=== PATIENT | male | born 1990 | race Hispanic/Latino ===

== ENCOUNTER 2022-09-27 23:16 | Emergency (ER) | payer SELFPAY ==
--- NOTE | ~2022-09-27 | XR_ITS ---
Clinical Indication: Shortness of breath PA and lateral views of the chest: Comparison: 01/24/2018 Findings: The lungs are clear, without evidence of focal consolidation or pleural effusion. Cardiome diastinal silhouette is within normal limits. Bones and soft tissues are unremarkable. Impression: Normal chest. Reviewed, dictated and finalized at location . Impression: Normal chest.
[2022-09-27 23:20] VITALS: BP 131/51; PULSE 90; RESP 18; TEMP 36.8; O2SAT 95
[2022-09-27 23:50] VITALS: BP 99/78; PULSE 90; RESP 17; TEMP 37.6; O2SAT 97
[2022-09-27 23:51] VITALS: O2SAT 97
[2022-09-27 23:53] VITALS: O2SAT 97
[2022-09-27 23:56] VITALS: PULSE 97
--- NOTE | 2022-09-28 00:11 | PC.NURSE ---
[facility] called respiratory for breathing treatment.
--- NOTE | 2022-09-28 00:26 | PC.NURSE ---
Respiratory at bedside for breathing treatment.
[2022-09-28 00:31] VITALS: PULSE 77; RESP 19
[2022-09-28] MEDS: ALBUTEROL SULFATE NEB 2.5 MG/3 ML INH 10 MG INHALATION (00:35)
[2022-09-28] MEDS: IPRATROPIUM BR 0.02% INH SOLN 0.5 MG/2.5 ML VIAL 1 MG INHALATION (00:35)
[2022-09-28 00:44] LABS: Basophils Percent Auto 0.3 % (0.2-1.2); Eosinophils Absolute Auto 0.2 K/mm3 (0-0.3); Eosinophils Percent Auto 2.5 % (0-4.4); Hematocrit 45.2 % (42.0-52.0); Hemoglobin 14.8 g/dL (14.0-18.0); Immature Granulocyte Absolute 0.01 K/mm3 (0.00-0.031); Immature Granulocyte Percent A 0.1 % (0-0.5); Lymphocytes Absolute Auto 2.24 K/mm3 (0.9-3.2); Lymphocytes Percent Auto 31.1 % (18.3-44.2); Mean Corpuscular HGB Conc 32.7 g/dl (32-36); Mean Corpuscular Hemoglobin 30.1 pg (26-34); Mean Corpuscular Volume 91.9 fl (80-100); Mean Platelet Volume 10.3 fl (7.4-10.4); Monocytes Absolute Auto 0.8 K/mm3 (0.1-0.6); Platelet Count Result 217 k/mm3 (150-375); Red Blood Count 4.92 M/mm3 (4.6-6.20); Red Cell Distribution Width 12.8 % (11.5-14.5); White Blood Count 7.2 K/mm3 (4.5-10.0)
--- NOTE | 2022-09-28 00:51 | ED.SOB ---
HPI - SOB/Dyspnea General Chief Complaint: Shortness of Breath/Dyspnea Stated Complaint: asthma Time Seen by Provider: 09/28/22 00:11 History of Present Illness HPI Narrative: This is a 32-year-old male with past history of asthma, who presents to the emergency department complaining of wheezing and shortness of breath for the past week. He states he has used his home nebulizers and albuterol without improvement. He denies fevers, chest pain or loss of consciousness. Related Data Allergies Allergy/AdvReac Type Severity Reaction Status Date / Time No Known Allergies Allergy Verified 09/27/22 23:22 Review of Systems Review of Systems: CONSTITUTIONAL: Denies fever, chills, or sweats. CARDIOVASCULAR: Denies chest pain, palpitations, or edema. RESPIRATORY: Wheezing and cough denies dyspnea. GASTROINTESTINAL: Denies abdominal pain, nausea, vomiting, or diarrhea. GENITOURINARY: Denies dysuria or hematuria. SKIN: Denies rash or itching. MUSCULOSKELETAL: Denies back pain, joint pain, or myalgia. NEUROLOGIC: Denies headache, numbness, dizziness, or weakness. PSYCHIATRIC: Denies anxiety or depression. [facility] Past Medical History Medical History Asthma Social History Social History (Updated 09/28/22 @ 00:52 by Abdirahman Diaz MD) Smoking status: Never smoker Alcohol intake: current Drinks per week: 1 Substance use: never Exam Narrative: GENERAL: Well-developed, well-nourished, and in no acute distress. HEAD: Normocephalic, atraumatic. EYES: PERRLA and EOMI. ENT: Nares clear, no rhinorrhea or epistaxis. Mucous membranes moist. Oropharynx without tonsillar hypertrophy exudate or other lesions. NECK: Supple. No adenopathy or masses. No carotid bruits or JVD CHEST: Expiratory wheeze in all lung patel. Good aeration. No respiratory distress. No rales or rhonchi HEART: Regular rate and rhythm. No murmur heard. Normal peripheral pulses. ABDOMEN: Soft, nontender, nondistended, normal active bowel sounds. EXTREMITIES: Normal range of motion. No edema. SKIN: Warm, dry, no rash. NEURO: No focal deficits. Alert and oriented x3. PSYCH: Normal mood and affect. Course Course Emergency Course: 01:57 - Labs unremarkable. On reevaluation after DuoNeb's, he states he feels improved though not yet ready to go home. On reevaluation, wheezing is improved. Will give an additional Xopenex nebs and reevaluate. 02:31 - After repeat nebs, the patient states he feels much better and is comfortable with discharge. Discussed return and emergency precautions including signs/symptoms of respiratory distress and ACS. The patient voiced understanding and is comfortable with the plan. All questions answered to satisfaction. Vital Signs Vital signs: Vital Signs Temperature 98.2 F 09/27/22 23:20 Pulse Rate 90 09/27/22 23:20 Respiratory Rate 18 09/27/22 23:20 Blood Pressure 131/51 L 09/27/22 23:20 Pulse Oximetry 95 09/27/22 23:20 Oxygen Delivery Room Air 09/27/22 23:20 Temperature 99.6 F 09/27/22 23:50 Pulse Rate 88 09/28/22 02:18 Respiratory Rate 11 L 09/28/22 02:18 Blood Pressure 130/72 09/28/22 01:09 Pulse Oximetry 100 09/28/22 02:18 Oxygen Delivery Room Air 09/28/22 02:18 MDM - SOB/Dyspnea MDM Narrative Medical decision making narrative: Plan: Labs, imaging, DuoNebs, steroids, reassess Differential Diagnosis Differential diagnosis: Likely asthma with exacerbation and other (Pneumonia, viral URI, other) Lab Data 09/28/22 00:08 09/28/22 00:08 Labs: Lab Results 09/28/22 Range/Units 00:08 WBC 7.2 (4.5-10.0) K/mm3 RBC 4.92 (4.6-6.20) M/mm3 Hgb 14.8 (14.0-18.0) g/dL Hct 45.2 (42.0-52.0) % MCV 91.9 (80-100) fl MCH 30.1 (26-34) pg MCHC 32.7 (32-36) g/dl RDW 12.8 (11.5-14.5) % Plt Count 217 (150-375) k/mm3 MPV 10.3 (7.4-10.4) fl Immature Gran % (A
[2022-09-28 00:55] LABS: Alanine Aminotransferase 26 U/L (6-50); Albumin Level 4.3 g/dL (3.5-5.1); Alkaline Phosphatase 76 U/L (38-126); Anion Gap 8 mmol/L (8-16); Aspartate Amino Transferase 31 U/L (17-59); Bilirubin,Total 0.4 mg/dL (0.2-1.3); Blood Urea Nitrogen 15 mg/dL (9-20); Calcium 8.5 mg/dL (8.4-10.2); Carbon Dioxide 31 mmol/L (22-30); Chloride 101 mmol/L (98-107); Estimated CRCL calculation 83 ml/min; Estimated Glomerular Filt Rate > 60; Glucose 104 mg/dL (65-110); Potassium 3.4 mmol/L (3.4-5.0); Sodium 140 mmol/L (137-145)
[2022-09-28 01:09] VITALS: BP 130/72; PULSE 89; RESP 20; O2SAT 98
[2022-09-28 01:40] VITALS: PULSE 116; RESP 20
[2022-09-28] MEDS: predniSONE 20 MG TABLET 40 MG PO (01:57)
[2022-09-28] MEDS: LEVALBUTEROL NEB 1.25 MG/3 ML INHALATION (02:15)
[2022-09-28 02:17] VITALS: PULSE 95; RESP 16
[2022-09-28 02:18] VITALS: PULSE 88; RESP 11; O2SAT 100
[2022-09-28 02:46] VITALS: BP 137/62; PULSE 107; RESP 20; O2SAT 95
== END 2022-09-28 02:47 | disposition home or self-care (01) ==
PROVIDERS: Emergency Provider Preventive Medicine Aerospace Medicine
DX: J45.901 Unspecified asthma with (acute) exacerbation (principal)
CPT/HCPCS: 36415; 71046; 80053; 85025; 94640; 99283; J7512